=== PATIENT | male | born 1985 | race Caucasian/White ===

== ENCOUNTER 2022-04-20 16:26 | Observation (INO) | payer OTHER, SELFPAY ==
[2022-04-20 16:27] VITALS: BP 140/93; PULSE 69; RESP 18; O2SAT 98; BMI 30.4
--- NOTE | 2022-04-20 17:31 | CRLHL7_ITS ---
For Patients: As a result of the Century Cures Act, medical imaging exams and procedure reports are released immediately into your electronic medical record. You may view this report before your referring provider. If you have questions, please contact your health care provider. DATE: 04/20/2022. CLINICAL HISTORY: Headache, vertigo. TECHNIQUE: Standard helical CT image acquisition through the head and neck was performed after intravenous contrast bolus enhancement. Multiplanar reconstructed images were performed and interpreted. COMPARISON: None available. FINDINGS: The origins of the great vessels from the aortic arch are patent. The origins of the right and left vertebral arteries are patent. The common carotid arteries are patent. No significant luminal stenoses of the proximal internal carotid arteries by NASCET criteria. The more distal cervical segments of the internal carotid arteries are patent. The cervical segments of the vertebral arteries are patent. No intracranial proximal large vessel occlusion or flow-limiting luminal stenosis. No evidence of cerebral aneurysm or findings to suggest an arteriovenous shunting lesion. IMPRESSION: 1. Normal CT angiogram of the head. 2. Normal CT angiogram of the neck. Please note that all CT scans at this facility use dose modulation, iterative reconstruction, and/or weight-based dosing when appropriate to reduce radiation dose to as low as reasonably achievable. Dictated by Solis Baltazar MD @ 04/20/2022 7:08:31 PM (Electronically Signed)
--- NOTE | 2022-04-20 17:31 | CRLHL7_ITS ---
For Patients: As a result of the Century Cures Act, medical imaging exams and procedure reports are released immediately into your electronic medical record. You may view this report before your referring provider. If you have questions, please contact your health care provider. DATE: 04/20/2022. CLINICAL HISTORY: Headache; vertigo. TECHNIQUE: Standard helical CT image acquisition of the brain was performed. COMPARISON: None available. FINDINGS: There is no intracranial hemorrhage. No extra-axial collection, mass effect, or midline shift. Gates-white matter differentiation is preserved. The ventricles are normal in size and morphology for patient age. The calvarium is unremarkable. The orbits are unremarkable. The paranasal sinuses are unremarkable. The mastoid air cells are unremarkable. The soft tissues are unremarkable. IMPRESSION: No CT evidence of acute intracranial abnormality. Please note that all CT scans at this facility use dose modulation, iterative reconstruction, and/or weight-based dosing when appropriate to reduce radiation dose to as low as reasonably achievable. Dictated by Solis Baltazar MD @ 04/20/2022 6:55:43 PM (Electronically Signed)
--- NOTE | 2022-04-20 17:52 | ED.GENADULT ---
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 This occurred at 2:00 p.m. when he rolled over in bed. Describes the room spinning around, numerous episodes of vomiting. He asked to lay still. Really can not even open his eyes because of this. 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 Denies any fevers chills or sweats no history of head trauma falls, denies any numbness tingling or weakness noted in his hands or his feet. He has no family history of any connective tissue disease but there is a family history of vertigo in his father. Denies any ear ringing, fevers chills or sweats, URI type symptoms. Not use any medications for this but the ambulance did give him some Zofran on the way in. Pain Consistency: intermittent Relieving factors: immobilization Exacerbating factors: movement Associated symptoms: nausea/vomiting Related Data Home Medications Medication Instructions Recorded Confirmed testosterone cypionate 200 mg/mL mg 04/20/22 intramuscular oil Allergies Allergy/AdvReac Type Severity Reaction Status Date / Time No Known Drug Allergies Allergy Verified 04/20/22 16:31 Review of Systems Status of ROS: Reports: 10 or more systems reviewed and unremarkable except as noted in History and below PFSH PFS Social History Smoking Status: Never smoker Do you use any of these nicotine containing products: None Second hand tobacco smoke exposure: No How often do you have a drink containing alcohol: never How often do you have six or more drinks on one occasion: Never AUDIT-C Alcohol total score: 0 Non-prescribed substance use: denies use service: Yes Exam Narrative: Exam Narrative: Patient is peaking normally, problem with slurring words, oriented x3. Head eyes ears nose and throat exam show equal pupils, no scleral icterus, extraocular muscles are normal, no facial droop, speech is normal, trachea normal and midline. Beating nystagmus is noted horizontally but not vertically, with 3 beats. He holds his head very still, with no movement. Thyroid normal midline palpable not enlarged. Chest shows symmetrical rise bilaterally, normal auscultation with no wheezes, no increased work of breathing, no overt bruising or lesions seen, no tenderness is noted on auscultation. Heart sounds normal with no S3-S4 no murmurs clicks or gallops. Abdomen shows no obvious masses or hepatosplenomegaly, no organomegaly, bowel sounds are normal in all quadrants. No tenderness is noted also in all quadrants. Upper and lower extremities show normal power, normal range of motion, pulses are normal, sensations normal, fine motor movements are normal, pelvis is stable to rocking. Cervical spine shows normal range of motion, and palpably not tender. Thoracic spine shows normal range of motion, and palpably not tender, lumbar spine shows no tenderness to palpation percussion and is otherwise normal range of motion. Skin shows no rashes, petechiae or eccymosis. Const: Vital Signs, click to edit/add: Vital Signs - 24 hr 04/20/22 16:27 04/20/22 17:55 04/20/22 20:00 Pulse Rate [Left P ulse Oximeter] 69 78 Respiratory Rate 18 16 Blood Pressure [Le ft Upper Arm] 140/93 H 132/79 163/82 H Pulse Oximetry 98 98 Oxygen Delivery Me thod Room Air Room Air Documenting provider has reviewed patient's vital signs: yes Course Vital Signs Vital signs: Initial Vital Signs Pulse Rate 69 04/20/22 16:27 Pulse Rhythm 04/20/22 16:27 Pulse Strength 3+ Normal 04/20/22 16:27 Respiratory Rate 18 04/20/22 16:27 Blood Pressure 140/93 H 04/20/22 16:27 Blood Pressure Mean 108 04/20/22 16:27 Blood Pressure Position Sitting 04/20/22 16:27 Pulse Oximetry 98 04/20/22 16:27 Oxygen Delivery Method 04/20/22 16:27 Vital Signs Pulse Rate 69 04/20/22 16:27 Respiratory Rate 18 04/20/22 16:27 Blood Pressure 140/93 H 04/20/22 16:27 Pulse Oximetry 98 04/20/22 16:27 Oxygen Delivery Method 04/20/22 16:27 Pulse Rate 78 04/20/22 20:00 Respiratory Rate 16 04/20/22 20:00 Blood Pressure 163/82 H 04/20/22 20:00 Pulse Oximetry 98 04/20/22 20:00 Oxygen Delivery Method 04/20/22 20:00 Medical Decision Making MDM Narrative Medical decision making narrative: Life-threatening differential diagnosis include subarachnoid hemorrhage, meningitis, encephalitis, carbon monoxide poisoning, and intracerebral hemorrhage. Other differential diagnosis include but not limited to migraine, cluster headache, tension headache, PERSONNEL PSYCHOLOGIST vasculitis, mass lesion, temporal arteritis, click acute closed angle glaucoma, septal and trigeminal neuralgia, sinusitis, closed head injury, and stroke I reviewed with the patient in the the CT of his head, CTA was negative, his improvement here with the Ativan Benadryl, and fluids. I do think that this is pure vertigo I am not thinking that this is evidence of a stroke, as is NIH Screen is 0. I do think however that he is really unable to sit up. I spoke to the inpatient physician we will admit him overnight, he may need steroids if this is improved, or MRI imaging if this is ongoing thing. Medical Records Medical records reviewed: Yes I reviewed the patient's medical records Lab Data Lab results reviewed: Yes I reviewed the patient's lab results Labs: Lab Results 04/20/22 04/20/22 04/20/22 Range/Units 17:48 17:48 17:48 WBC 7.22 (4.50-11.00) K/uL RBC 5.17 (4.30-5.90) m/uL Hgb 14.7 (13.5-17.5) gm/dL Hct 43.4 (37.0-53.0) % MCV 84 (80-100) fL MCH 28 (26-34) pg MCHC 34 (32-36) gm/dL RDW Coeff of Vipul 12.2 (11.5-15.5) % Plt Count 245 (140-440) K/uL Neut % (Auto) 66.6 (42.0-72.0) % Lymph % (Auto) 19.8 L (20-44) % [place] % (Auto) 12.6 H (0.0-11.0) % Eos % (Auto) 0.4 (0.0-7.0) % Baso % (Auto) 0.3 (0.0-3.0) % Neut # (Auto) 4.81 (1.7-7.0) K/uL Lymph # (Auto) 1.40 (0.90-2.90) K/uL [place] # (Auto) 0.90 (0.00-0.90) K/UL Eos # (Auto) 0.03 (0.00-0.50) K/uL Baso # (Auto) 0.02 (0.00-0.30) K/uL Abs Immat Gran (auto) 0.02 (0.00-0.30) K/uL D-Dimer Quant (PE/DVT) (0.00-0.50) ug/ml Sodium 138 (135-149) mmol/L Potassium 4.4 (3.6-5.1) mmol/L Chloride 105 (96-114) mmol/L Carbon Dioxide 26 (20-32) mmol/L BUN 18 (5-24) mg/dL Creatinine 1.1 (0.5-1.5) mg/dL Estimated Creat Clear 98.88 Estimated GFR 89 ml/min Glucose 118 H (60-115) mg/dL Calcium 9.0 (8.4-10.6) mg/dL C-Reactive Protein < 0.5 L (0.5-1.0) mg/dL Urine Opiates Screen (Negative) Ur Oxycodone Screen (Negative) Urine Methadone Screen (Negative) Ur Propoxyphene Screen (Negative) Ur Barbiturates Screen (Negative) U Tricyclic Antidepress (Negative) Ur Phencyclidine Scrn (Negative) Ur Amphetamines Screen (Negative) U Methamphetamines Scrn (Negative) U Benzodiazepines Scrn (Negative) Urine Cocaine Screen (Negative) U Marijuana (THC) Screen (Negative) Ur Drug Screen Comment Ethyl Alcohol < 0.01 L (0.01-0.03) % SARS-CoV-2 (PCR) Negative SARS-CoV-2 (Negative) Influenza Type A (PCR) Negative PCR FLU A (Negative) Influenza Type B (PCR) Negative PCR FLU B (Negative) RSV (PCR) Negative PCR RSV (Negative) POC Troponin I (0.01-0.04) ng/ml 04/20/22 04/20/22 04/20/22 Range/Units 17:48 18:18 19:27 WBC (4.50-11.00) K/uL RBC (4.30-5.90) m/uL Hgb (13.5-17.5) gm/dL Hct (37.0-53.0) % MCV (80-100) fL MCH (26-34) pg MCHC (32-36) gm/dL RDW Coeff of Vipul (11.5-15.5) % Plt Count (140-440) K/uL Neut % (Auto) (42.0-72.0) % Lymph % (Auto) (20-44) % [place] % (Auto) (0.0-11.0) % Eos % (Auto) (0.0-7.0) % Baso % (Auto) (0.0-3.0) % Neut # (Auto) (1.7-7.0) K/uL Lymph # (Auto) (0.90-2.90) K/uL [place] # (Auto) (0.00-0.90) K/UL Eos # (Auto) (0.00-0.50) K/uL Baso # (Auto) (0.00-0.30) K/uL Abs Immat Gran (auto) (0.00-0.30) K/uL D-Dimer Quant (PE/DVT) 0.28 (0.00-0.50) ug/ml Sodium (135-149) mmol/L Potassium (3.6-5.1) mmol/L Chloride (96-114) mmol/L Carbon Dioxide (20-32) mmol/L BUN (5-24) mg/dL Creatinine (0.5-1.5) mg/dL Estimated Creat Clear Estimated GFR ml/min Glucose (60-115) mg/dL Calcium (8.4-10.6) mg/dL C-Reactive Protein (0.5-1.0) mg/dL Urine Opiates Screen (Negative) Ur Oxycodone Screen (Negative) Urine Methadone Screen (Negative) Ur Propoxyphene Screen (Negative) Ur Barbiturates Screen (Negative) U Tricyclic Antidepress (Negative) Ur Phencyclidine Scrn (Negative) Ur Amphetamines Screen (Negative) U Methamphetamines Scrn (Negative) U Benzodiazepines Scrn (Negative) Urine Cocaine Screen (Negative) U Marijuana (THC) Screen (Negative) Ur Drug Screen Comment Ethyl Alcohol Cancelled (0.01-0.03) % SARS-CoV-2 (PCR) (Negative) Influenza Type A (PCR) (Negative) Influenza Type B (PCR) (Negative) RSV (PCR) (Negative) POC Troponin I 0.00 L (0.01-0.04) ng/ml 04/20/22 Range/Units 20:39 WBC (4.50-11.00) K/uL RBC (4.30-5.90) m/uL Hgb (13.5-17.5) gm/dL Hct (37.0-53.0) % MCV (80-100) fL MCH (26-34) pg MCHC (32-36) gm/dL RDW Coeff of Vipul (11.5-15.5) % Plt Count (140-440) K/uL Neut % (Auto) (42.0-72.0) % Lymph % (Auto) (20-44) % [place] % (Auto) (0.0-11.0) % Eos % (Auto) (0.0-7.0) % Baso % (Auto) (0.0-3.0) % Neut # (Auto) (1.7-7.0) K/uL Lymph # (Auto) (0.90-2.90) K/uL [place] # (Auto) (0.00-0.90) K/UL Eos # (Auto) (0.00-0.50) K/uL Baso # (Auto) (0.00-0.30) K/uL Abs Immat Gran (auto) (0.00-0.30) K/uL D-Dimer Quant (PE/DVT) (0.00-0.50) ug/ml Sodium (135-149) mmol/L Potassium (3.6-5.1) mmol/L Chloride (96-114) mmol/L Carbon Dioxide (20-32) mmol/L BUN (5-24) mg/dL Creatinine (0.5-1.5) mg/dL Estimated Creat Clear Estimated GFR ml/min Glucose (60-115) mg/dL Calcium (8.4-10.6) mg/dL C-Reactive Protein (0.5-1.0) mg/dL Urine Opiates Screen Negative (Negative) Ur Oxycodone Screen Negative (Negative) Urine Methadone Screen Negative (Negative) Ur Propoxyphene Screen Negative (Negative) Ur Barbiturates Screen Negative (Negative) U Tricyclic Antidepress Negative (Negative) Ur Phencyclidine Scrn Negative (Negative) Ur Amphetamines Screen Negative (Negative) U Methamphetamines Scrn Negative (Negative) U Benzodiazepines Scrn Negative (Negative) Urine Cocaine Screen Negative (Negative) U Marijuana (THC) Screen Negative (Negative) Ur Drug Screen Comment See Note Ethyl Alcohol (0.01-0.03) % SARS-CoV-2 (PCR) (Negative) Influenza Type A (PCR) (Negative) Influenza Type B (PCR) (Negative) RSV (PCR) (Negative) POC Troponin I (0.01-0.04) ng/ml Imaging Data CT scan - head: My impression: Negative head CT, negative CT of head neck Radiologist's impression: Negative head CT negative CT of head neck. Discharge Plan Discharge Clinical Impression: Vertigo Patient Disposition: Admitted As Inpatient Condition: Improved
[2022-04-20 17:55] VITALS: BP 132/79
[2022-04-20] MEDS: LORazepam 2 MG/ML inj 1 MG IVP (17:55)
[2022-04-20] MEDS: 0.9 % SODIUM CHLORIDE 1000 ml 1,000 ML IV (17:55)
[2022-04-20 17:57] LABS: Basophils Absolute Auto 0.02 K/uL (0.00-0.30); Basophils Percent Auto 0.3 % (0.0-3.0); Eosinophils Absolute Auto 0.03 K/uL (0.00-0.50); Eosinophils Percent Auto 0.4 % (0.0-7.0); Hematocrit 43.4 % (37.0-53.0); Hemoglobin* 14.7 gm/dL (13.5-17.5); Immature Granulocytes Abs Auto 0.02 K/uL (0.00-0.30); Lymphocytes Percent Auto 19.8 % (20-44); Mean Corpuscular HGB Conc 34 gm/dL (32-36); Mean Corpuscular Hemoglobin 28 pg (26-34); Mean Corpuscular Volume 84 fL (80-100); Monocytes Percent Auto 12.6 % (0.0-11.0); Neutrophils Absolute Auto 4.81 K/uL (1.7-7.0); Neutrophils Percent Auto 66.6 % (42.0-72.0); Platelet Count* 245 K/uL (140-440); RDW Coefficient of Variation % 12.2 % (11.5-15.5); Red Blood Count 5.17 m/uL (4.30-5.90); White Blood Count* 7.22 K/uL (4.50-11.00)
[2022-04-20 17:59] LABS: Slide Review Reflex No
[2022-04-20 18:08] LABS: Chloride* 105 mmol/L (96-114)
[2022-04-20 18:09] LABS: Potassium* 4.4 mmol/L (3.6-5.1); Sodium* 138 mmol/L (135-149)
[2022-04-20 18:11] LABS: Creatinine* 1.1 mg/dL (0.5-1.5); Est. Creatinine Clearance* 98.88; Estimated Glomerular Filt Rate 89 ml/min
[2022-04-20 18:12] LABS: Blood Urea Nitrogen* 18 mg/dL (5-24); Carbon Dioxide* 26 mmol/L (20-32); Glucose* 118 mg/dL (60-115)
[2022-04-20 18:13] LABS: Ethanol* < 0.01 % (0.01-0.03)
[2022-04-20 18:16] LABS: C Reactive Protein* < 0.5 mg/dL (0.5-1.0)
[2022-04-20 18:34] LABS: PCR FLU A Negative PCR FLU A (Negative); PCR FLU B Negative PCR FLU B (Negative); PCR RSV Negative PCR RSV (Negative)
[2022-04-20 18:42] LABS: SARS PCR* Negative SARS-CoV-2 (Negative)
[2022-04-20 20:00] VITALS: BP 163/82; PULSE 78; RESP 16; O2SAT 98
[2022-04-20] MEDS: diphenhydrAMINE 50 MG/ML inj 25 MG IVP (20:30)
[2022-04-20] MEDS: LORazepam 2 MG/ML inj 0.5 MG IVP (20:31)
[2022-04-20] MEDS: 0.9 % SODIUM CHLORIDE 500 ML 500 ML IV (20:31)
[2022-04-20 20:59] LABS: Amphetamine Screen Urine Negative (Negative); Barbiturate Screen Urine Negative (Negative); Benzodiazepines Screen Urine Negative (Negative); Cannabinoid Screen Urine Negative (Negative); Cocaine Screen Urine Negative (Negative); Methadone Screen Urine Negative (Negative); Methamphetamines Screen Urine Negative (Negative); Opiate Screen Urine Negative (Negative); Oxycodone Screen Urine Negative (Negative); Phencyclidine Screen Urine Negative (Negative); Tricyclic Antidepressant Urine Negative (Negative)
[2022-04-20 21:01] LABS: D Dimer Quantitative* 0.28 ug/ml (0.00-0.50)
[2022-04-20 22:53] VITALS: BP 121/56; PULSE 75; RESP 16; TEMP 36.4; O2SAT 98; BMI 30.4
--- NOTE | 2022-04-20 23:56 | P.IMHP_ITS ---
Hospitalist- H&P: HPI History of Present Illness Date Seen: 04/20/22 Chief complaint: Vomiting Narrative: Kentrell Ramirez is a 36 year old male who presents to the emergency room with the abrupt onset of dizziness and vertigo which began while the patient was sleeping. He feels reasonably ok when he is stationary and has his eyes closed. When he turns his head he becomes severely dizzy and nauseated. He feels like the room is spinning. No change in his hearing, no recent trauma or headache, no fever, no URI symptoms. Pt has had no similar symptoms previously. Pt had a negative CT of the head as well as negative CTA of the head and neck. Also unremarkable were CBC, D-dimer, CRP, Electrolytes, Toxicology and ETOH. Pt unable to ambulate or keep fluids down. Review of Systems Status of ROS: Reports: 10 or more systems reviewed and unremarkable except as noted in History and below [facility] Medical History Long-term current use of testosterone replacement therapy Surgical History History of tonsillectomy [place] teeth extracted Family History Father Anxiety High blood pressure DM (diabetes mellitus), type 2 Brother Hyperlipidemia Paternal Grandmother Cancer Mother DM (diabetes mellitus), type 2 Maternal Grandmother DM (diabetes mellitus), type 2 Paternal Grandfather DM (diabetes mellitus), type 2 Social History Highest level of school completed/degree received: Bachelor's degree Smoking Status: Never smoker Do you use any of these nicotine containing products: None Second hand tobacco smoke exposure: No How often do you have a drink containing alcohol: never How often do you have six or more drinks on one occasion: Never AUDIT-C Alcohol total score: 0 Non-prescribed substance use: denies use service: Yes Meds Home Medications and Allergies Home Medications Medication Instructions Recorded Confirmed Type testosterone cypionate 200 mg/mL mg 04/20/22 History intramuscular oil Home Medication Comments: Pt also takes Creatine, Fish Oil, Vitamin D, Tumeric and Multivitamin Allergies Allergy/AdvReac Type Severity Reaction Status Date / Time No Known Drug Allergies Allergy Verified 04/20/22 16:31 Exam Narrative: Exam Narrative: EXAM GENERAL: Patient shows no signs of nuchal rigidity. He does keep his eyes closed most of the time but does have horizontal nystamus EYES: No scleral icterus. ENT: Tympanic membranes and oropharynx normal. THYROID: no thyroid nodules or thyromegaly. LYMPH: No supraclavicular or cervical lymphadenopathy. SKIN: Visible skin seen during exam normal or with benign process only. EXT: No dependent lower extremity pedal edema. HEART: Regular rate and rhythm with no murmurs, rubs, or gallops. LUNGS: Clear to auscultation bilaterally with no crackles or wheezes. ABD: Soft, non tender, non distended. PSYCH: Good eye contact, speech is not pressured. Neurological: Other than the vertigo which is positional, pt is completely neurologically intact. Const: Vital Signs, click to edit/add: Vital Signs - 24 hr 04/20/22 16:27 04/20/22 17:55 04/20/22 20:00 Temperature Pulse Rate [Left P ulse Oximeter] 69 78 Pulse Rate [Pulse Oximeter] Respiratory Rate 18 16 Blood Pressure [Le ft Arm] Blood Pressure [Le ft Upper Arm] 140/93 H 132/79 163/82 H Pulse Oximetry 98 98 Oxygen Delivery Me thod Room Air Room Air 04/20/22 22:53 04/20/22 23:08 Temperature 97.6 F Pulse Rate [Left P ulse Oximeter] Pulse Rate [Pulse Oximeter] 75 Respiratory Rate 16 Blood Pressure [Le ft Arm] 121/56 L Blood Pressure [Le ft Upper Arm] Pulse Oximetry 98 Oxygen Delivery Nd thod Room Air Room Air Hospitalist - H&P: Result Labs Labs: Short CBC 04/20/22 Range/Units 17:48 WBC 7.22 (4.50-11.00) K/uL Hgb 14.7 (13.5-17.5) gm/dL Hct 43.4 (37.0-53.0) % Plt Count 245 (140-440) K/uL BMP 04/20/22 17:48 Sodium 138 Potassium 4.4 Chloride 105 Carbon Dioxide 26 BUN 18 Creatinine 1.1 Glucose 118 H Calcium 9.0 Assessment and Plan Assessment and plan (1) Vertigo: Status: Acute Assessment and Plan: Pt will be treated with hydration as well as Zofran and Ativan. Pt shows no signs of cardiovascular symptoms but will place pt on telemetry overnight. I would recommend PT assessment in the am and consideration of MRI/Neurology consult if no improvement. Pt will be a full code. (2) Long-term current use of testosterone replacement therapy: Status: Chronic Assessment and Plan: Will hold on supplementation as well as oral vitamins overnight.
[2022-04-21 00:10] VITALS: BP 121/56; PULSE 75; PULSE 83; RESP 16; TEMP 36.4; O2SAT 98
[2022-04-21] MEDS: 0.9 % SODIUM CHLORIDE 1000 ml 1,000 ML 125 ML IV ×2 (01:00→06:26)
[2022-04-21] MEDS: ONDANSETRON 2 MG/ML inj 4 MG IVP ×3 (01:27→12:51)
[2022-04-21] MEDS: LORazepam 2 MG/ML inj 0.5 MG IVP (01:27)
[2022-04-21 03:00] VITALS: BP 123/74; PULSE 75; RESP 18; TEMP 36.6; O2SAT 98
[2022-04-21 07:25] LABS: Chloride* 105 mmol/L (96-114)
[2022-04-21 07:26] LABS: Potassium* 3.7 mmol/L (3.6-5.1); Sodium* 138 mmol/L (135-149)
--- NOTE | 2022-04-21 07:27 | PC.NURSE ---
[id number]: Patient admitted to unit at 2145. Cooperative with cares. Uses a urinal to void. Unable to get out of bed d/t dizziness and nausea. Zofran administered x2 and Ativan x1. Leticia at bedside.
[2022-04-21 07:28] LABS: Creatinine* 1.1 mg/dL (0.5-1.5); Est. Creatinine Clearance* 98.88; Estimated Glomerular Filt Rate 89 ml/min
[2022-04-21 07:29] LABS: Blood Urea Nitrogen* 13 mg/dL (5-24); Calcium* 8.4 mg/dL (8.4-10.6); Carbon Dioxide* 25 mmol/L (20-32); Glucose* 97 mg/dL (60-115)
[2022-04-21 08:47] VITALS: BP 125/73; PULSE 77; RESP 16; TEMP 36.7; O2SAT 98
[2022-04-21] MEDS: diphenhydrAMINE 50 MG/ML inj 25 MG IVP (08:55)
[2022-04-21 11:21] VITALS: BP 126/81; PULSE 68; RESP 16; TEMP 36.6; O2SAT 98
--- NOTE | 2022-04-21 11:33 | CRLHL7_ITS ---
For Patients: As a result of the Century Cures Act, medical imaging exams and procedure reports are released immediately into your electronic medical record. You may view this report before your referring provider. If you have questions, please contact your health care provider. Indication: Vertigo Technique: Noncontrast sagittal T1 weighted, axial FLAIR, axial T2 weighted, and axial diffusion weighted sequences are provided. Comparison: CT head 04/20/2022 Findings: The ventricles, sulci and gyri are normal size, shape and contour for age. The midline structures are centrally located with no evidence of shift. There are no suspicious intra or extra-axial fluid collections. No region of restricted diffusion. Expected flow voids in the cavernous carotids and basilar artery. Polypoid mucosal thickening in the right maxillary sinus and left anterior ethmoid air cells. Rightward deviation of the nasal septum. Impression: Unremarkable noncontrast MRI of the head. Dictated by Yan Mars MD @ 04/21/2022 1:12:55 PM (Electronically Signed)
[2022-04-21] MEDS: diazePAM 5 MG TABLET PO (11:54)
--- NOTE | 2022-04-21 14:52 | PC.NURSE ---
End of shift note: Patient here for Vertigo. Has not had any emesis this shift. Fluids were stopped at 1400 and patient has been able to take in Apple juice and Chicken noodle soup without vomiting. Patient had MRI of head which was reassuring. PT saw patient today and gave exercises to help with vertigo. Patient has been taking PO valium, IV zofran (switching to PO), IV bendaryl with some relief of nausea but still complains of dizziness. Patient is voiding without difficulty. LBM 04/19. Vital signs are within normal limits. Alert and oriented. Has stood and ambulated a few feet without falling or feeling unsteady. Has been sitting up in bed with eyes shut but able to tolerate this. Has support at home. Plan is to DC when able to tolerate PO meds and intake.
[2022-04-21 15:00] VITALS: BP 147/75; PULSE 70; RESP 16; TEMP 36.6; O2SAT 99
--- NOTE | 2022-04-21 16:33 | PM.DS1 ---
DS: Providers Provider Date Seen: 04/21/22 Date of admission: 04/20/22 21:42 Primary care physician: Not a Local Provider Admitting Clinician: Jim Ochoa MD Consults: 04/20/22 23:18 Consult to Physical Therapy [CONS] Routine Comment: Reason(s) for PT Consult:: Balance Assessment Any Restrictions?:: No Restrictions 04/21/22 00:12 Consult to Physical Therapy [CONS] Routine Comment: Reason(s) for PT Consult:: Evaluate Ambulation Any Restrictions?:: No Restrictions Attending Physician on discharge: Giselle Lizarraga MD Date of Discharge: 04/21/22 DS: Diagnosis Discharge Diagnosis (1) Vertigo: Status: Acute DS: Summary Hospital Course Hospital Course: Patient is a 36-year-old male who presented to the hospital with acute vertigo, accompanied by nausea and vomiting. CTA of head and neck were normal upon admission; MRI of her head performed on hospital day 1 was also negative for acute abnormality. Patient seen by Physical therapy with mild improvement of symptoms, also had mild improvement of symptoms with Valium. He was able to tolerate p.o. intake on hospital day 1, felt comfortable discharging home with and close PT follow-up. 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 Status at Discharge Functional status at discharge: independent ambulation Overall status at discharge: patient is progressing back to baseline Time Spent with Patient Time attestation: Total time spent providing and/or coordinating discharge services: Time spent: Greater than 30 minutes Exam Narrative: Exam Narrative: GEN: Alert and answering questions appropriately, laying comfortably in bed, keeps eyes closed through most of our visit HEENT: Normal external ears, EOMIs bilaterally CV: RRR, No concerning murmurs, rubs, or gallops R: LCTA bilaterally without concerning wheezing, rales, or rhonchi Ext: wwp, no concerning edema Skin: No concerning skin lesions or rashes on exposed skin Neuro: Nonfocal, no resting tremor, gait not observed Psych: Appropriate Const: Vital Signs, click to edit/add: Vital Signs - 24 hr 04/20/22 17:55 04/20/22 20:00 04/20/22 22:53 Temperature 97.6 F Pulse Rate Pulse Rate [Left P ulse Oximeter] 78 Pulse Rate [Pulse Oximeter] 75 Respiratory Rate 16 16 Blood Pressure [Le ft Arm] 121/56 L Blood Pressure [Le ft Upper Arm] 132/79 163/82 H Pulse Oximetry 98 98 Oxygen Delivery Me thod Room Air Room Air 04/20/22 23:08 04/21/22 00:10 04/21/22 03:00 Temperature 97.6 F 97.9 F Pulse Rate Pulse Rate [Left P ulse Oximeter] Pulse Rate [Pulse Oximeter] 75 75 Respiratory Rate 16 18 Blood Pressure [Le ft Arm] 121/56 L 123/74 Blood Pressure [Le ft Upper Arm] Pulse Oximetry 98 98 Oxygen Delivery Me thod Room Air Room Air Room Air 04/21/22 00:10 04/21/22 08:47 04/21/22 11:21 Temperature 98.0 F 97.8 F Pulse Rate 83 Pulse Rate [Left P ulse Oximeter] Pulse Rate [Pulse Oximeter] 77 68 Respiratory Rate 16 16 Blood Pressure [Le ft Arm] 125/73 126/81 Blood Pressure [Le ft Upper Arm] Pulse Oximetry 98 98 Oxygen Delivery Me thod Room Air Room Air 04/21/22 15:00 04/21/22 15:00 Temperature 97.8 F Pulse Rate Pulse Rate [Left P ulse Oximeter] Pulse Rate [Pulse Oximeter] 70 70 Respiratory Rate 16 16 Blood Pressure [Le ft Arm] 147/75 H Blood Pressure [Le ft Upper Arm] Pulse Oximetry 99 Oxygen Delivery Me thod Room Air DS: Data Data Completed and Pending Labs on day of discharge: Labs from last 24 hours 04/21/22 04/20/22 04/20/22 06:30 20:39 19:27 WBC RBC Hgb Hct MCV MCH MCHC RDW Coeff of Vipul Plt Count Neut % (Auto) Lymph % (Auto) Creek % (Auto) Eos % (Auto) Baso % (Auto) Neut # (Auto) Lymph # (Auto) Creek # (Auto) Eos # (Auto) Baso # (Auto) Abs Immat Gran (auto) D-Dimer Quant (PE/DVT) 0.28 Sodium 138 Potassium 3.7 Chloride 105 Carbon Dioxide 25 BUN 13 Creatinine 1.1 Estimated Creat Clear 98.88 Estimated GFR 89 Glucose 97 Calcium 8.4 C-Reactive Protein Urine Opiates Screen Negative Ur Oxycodone Screen Negative Urine Methadone Screen Negative Ur Propoxyphene Screen Negative Ur Barbiturates Screen Negative U Tricyclic Antidepress Negative Ur Phencyclidine Scrn Negative Ur Amphetamines Screen Negative U Methamphetamines Scrn Negative U Benzodiazepines Scrn Negative Urine Cocaine Screen Negative U Marijuana (THC) Screen Negative Ur Drug Screen Comment See Note Ethyl Alcohol SARS-CoV-2 (PCR) Influenza Type A (PCR) Influenza Type B (PCR) RSV (PCR) POC Troponin I 04/20/22 04/20/22 04/20/22 18:18 17:48 17:48 WBC RBC Hgb Hct MCV MCH MCHC RDW Coeff of Vipul Plt Count Neut % (Auto) Lymph % (Auto) Creek % (Auto) Eos % (Auto) Baso % (Auto) Neut # (Auto) Lymph # (Auto) Creek # (Auto) Eos # (Auto) Baso # (Auto) Abs Immat Gran (auto) D-Dimer Quant (PE/DVT) Sodium Potassium Chloride Carbon Dioxide BUN Creatinine Estimated Creat Clear Estimated GFR Glucose Calcium C-Reactive Protein Urine Opiates Screen Ur Oxycodone Screen Urine Methadone Screen Ur Propoxyphene Screen Ur Barbiturates Screen U Tricyclic Antidepress Ur Phencyclidine Scrn Ur Amphetamines Screen U Methamphetamines Scrn U Benzodiazepines Scrn Urine Cocaine Screen U Marijuana (THC) Screen Ur Drug Screen Comment Ethyl Alcohol Cancelled SARS-CoV-2 (PCR) Negative SARS-CoV-2 Influenza Type A (PCR) Negative PCR FLU A Influenza Type B (PCR) Negative PCR FLU B RSV (PCR) Negative PCR RSV POC Troponin I 0.00 L 04/20/22 04/20/22 17:48 17:48 WBC 7.22 RBC 5.17 Hgb 14.7 Hct 43.4 MCV 84 MCH 28 MCHC 34 RDW Coeff of Vipul 12.2 Plt Count 245 Neut % (Auto) 66.6 Lymph % (Auto) 19.8 L Creek % (Auto) 12.6 H Eos % (Auto) 0.4 Baso % (Auto) 0.3 Neut # (Auto) 4.81 Lymph # (Auto) 1.40 Creek # (Auto) 0.90 Eos # (Auto) 0.03 Baso # (Auto) 0.02 Abs Immat Gran (auto) 0.02 D-Dimer Quant (PE/DVT) Sodium 138 Potassium 4.4 Chloride 105 Carbon Dioxide 26 BUN 18 Creatinine 1.1 Estimated Creat Clear 98.88 Estimated GFR 89 Glucose 118 H Calcium 9.0 C-Reactive Protein < 0.5 L Urine Opiates Screen Ur Oxycodone Screen Urine Methadone Screen Ur Propoxyphene Screen Ur Barbiturates Screen U Tricyclic Antidepress Ur Phencyclidine Scrn Ur Amphetamines Screen U Methamphetamines Scrn U Benzodiazepines Scrn Urine Cocaine Screen U Marijuana (THC) Screen Ur Drug Screen Comment Ethyl Alcohol < 0.01 L SARS-CoV-2 (PCR) Influenza Type A (PCR) Influenza Type B (PCR) RSV (PCR) POC Troponin I Discharge Plan Discharge Disposition: Home, Self-Care Date of Admission: 04/20/22 21:42 Attending Provider on Discharge: Giselle Lizarraga Primary Care Provider: Provider,Not a Local Condition: Improved Anticipated Discharge Date/Time: 04/21/22 16:14 Discharge Medications: New diazepam 5 mg Tablet 5 mg PO TID PRN (Reason: Vertigo) Qty: 20 0RF ondansetron HCl 4 mg tablet 4 mg PO Q8H Qty: 15 0RF Continued testosterone cypionate 200 mg/mL oil 60 mg IM Q7D multivitamin [Daily Multi-Vitamin] Tablet 1 tab PO DAILY omega [id number] oil [Fish Oil] 1,200 (144-216) mg capsule 1 cap PO DAILY Discharge Orders: Discharge Order (Routine); Ordered 04/21/22 Ordered By: Giselle Lizarraga Patient Education: Benign Paroxysmal Positional Vertigo (DC) Activity Restrictions/Additional Instructions: Work note written, no driving while actively dizzy. Followup with PT as recommended. Consider establishing care with PCP at [facility] for regular followup. Activity Level: Activity as Tolerated Activity Detail: No driving or working when having vertigo Discharge Diet: Regular Follow Up Appointments: NH&C, Physical Therapy [Other] - 04/27/22 10:00 am Provider,Not a Local [Primary Care Provider] - Forms: Move In History Info Instructions
--- NOTE | 2022-04-21 18:58 | PC.NURSE ---
went over discharge checker and packer with pt and spouse. went over medication x2, appointments x2 instruction and education. SL was d/c intact. spouse and pt went over discharge list and signed form. spouse packet up all belongings and paperwork and medications. he got a w/c ride to car and was helped in to car.
== END 2022-04-21 18:45 | disposition home or self-care (01) ==
LOC: ED 21:55 → MEDSURG 22:17
PROVIDERS: Admitting Provider Internal Medicine; Emergency Provider Family Medicine; PCP Family Medicine; Visit Provider Internal Medicine
DX: R42 Dizziness and giddiness (principal); R11.2 Nausea with vomiting, unspecified; Z79.890 Hormone replacement therapy
CPT/HCPCS: 36415; 70450; 70496; 70498; 70551; 80048; 80306; 82077; 84484; 85025; 85379; 86140; 87502; 87634; 87635; 96374; 96375; 96376; 97112; 97161; 99285; G0378; A0425; A0427; G0379; J1200; J2060; J2405; J7030; J7120; Q9967